=== PATIENT | female | born 1985 | race Caucasian/White ===

== ENCOUNTER 2022-03-17 17:15 | Emergency (ER) | payer OTHER ==
[~2022-03-17] VITALS: Ht 172.7 cm; Wt 68.0 kg
[2022-03-17] MEDS ORDERED: LIDOCAINE HCL 1% 20 ML VIAL ONE (17:52)
[2022-03-17] MEDS ORDERED: LIDOCAINE HCL 1% 20 ML VIAL IJ ONE (18:00)
[2022-03-17] MEDS ORDERED: PIPERACILLIN SODIUM/TAZOBACTAM 3.375 G in IV DEXTROSE 5% 50 ML IV ONE (18:00)
[2022-03-17] MEDS ORDERED: VANCOMYCIN IV 1,000 MG in IV DEXTROSE 5% 250 ML IV ONE (18:00)
[2022-03-17 18:08] LABS: MEAN CORPUSCULAR HEMOGLOBIN 28.3 uug (24.7-32.8); MEAN CORPUSCULAR VOLUME 85.8 fL (75.5-95.3); PLATELET COUNT (AUTO) 269 K/uL (179-408)
[2022-03-17 18:15] LABS: CREATININE 0.8 mg/dL (0.6-1.3); POTASSIUM 3.6 mmol/L (3.5-5.1)
[2022-03-17] MEDS ORDERED: CEphaleXIN 500 MG CAPSULE PO ONE (18:45)
[2022-03-17] MEDS ORDERED: SULFAMETH/TRIMETH 800/160 MG TABLET PO ONE (18:45)
[2022-03-17] MEDS ORDERED: SULFAMETH/TRIMETH 800/160 MG TABLET ONE (18:49)
[2022-03-17] MEDS ORDERED: CEphaleXIN 500 MG CAPSULE ONE (18:49)
--- NOTE | 2022-03-17 18:58 | NUR ---
PT WAS EVAlUATED BY DR HARE. DR HARE PERFORMED I&D PROCEDURE ON THE PT RIGHT MIDDLE FINGER. PT TOLERATED TO PROCEDURE WITHOUT COMPLICATIONS. PT DECIDED TO LEAVE HOSPITA AMA. DR HARE EXPLAINED ALL RISKS OF LEAVING HOSPITAL ER AMA TO THE PT. PT VERBALIZED FULL UNDERSTANDING. PT SIGNED AMA FORM AND LEFT HOSPITAL ER BY TAXI.
[2022-03-17 19:03] VITALS: BP 136/85
== END 2022-03-17 19:04 | disposition left against medical advice (07) ==
LOC: ER 17:15
DX: L08.9 Local infection of the skin and subcutaneous tissue, unspecified (principal); Z53.29 Procedure and treatment not carried out because of patient's decision for other reasons
CPT/HCPCS: 99284; 10060; 93971; 80048; 85025; 85730; 36415; 73130; J3490; A4663